=== PATIENT | male | born 1935 | race Two or more races ===

== ENCOUNTER 2019-04-26 14:00 | Outpatient (CLI) | payer MEDICARE, OTHER | END 2019-04-26 23:59 | disposition home or self-care (01) | LOC: WOU 14:00 | PROVIDERS: ATTEND Podiatrist Foot & Ankle Surgery | DX: L60.0 Ingrowing nail (principal); B35.1 Tinea unguium; L84 Corns and callosities; M79.671 Pain in right foot; M79.672 Pain in left foot; J43.9 Emphysema, unspecified; Z87.891 Personal history of nicotine dependence; L40.9 Psoriasis, unspecified; Z99.81 Dependence on supplemental oxygen; M62.81 Muscle weakness (generalized) | CPT/HCPCS: G0463 ==